=== PATIENT | female | born 1995 | race Caucasian/White ===

== ENCOUNTER 2018-03-24 00:52 | Emergency (ER) | payer OTHER ==
[~2018-03-24] VITALS: Ht 160 cm; Wt 79.4 kg
[~2018-03-24 00:52] MED LIST: MOTRIN800 MG PO
[2018-03-24] MEDS ORDERED: KETO10TA2 PO (09:57)
== END 2018-03-24 10:13 | disposition home or self-care (01) ==
LOC: ER 00:52
DX: R10.2 Pelvic and perineal pain (principal); R10.31 Right lower quadrant pain

== ENCOUNTER 2023-02-08 09:11 | Emergency (ER) | payer OTHER ==
[~2023-02-08] VITALS: Ht 160 cm; Wt 79.4 kg
[~2023-02-08 09:11] MED LIST changes: +KETO10TA2 PO
[2023-02-08] MEDS ORDERED: FOLIC ACID20 MG (09:25)
[2023-02-08] MEDS ORDERED: PRENATAL CAPLE1 EAC1 (09:25)
== END 2023-02-08 13:59 | disposition home or self-care (01) ==
LOC: ER 09:11
DX: O99.611 Diseases of the digestive system complicating pregnancy, first trimester (principal); Z3A.01 Less than 8 weeks gestation of pregnancy; K62.5 Hemorrhage of anus and rectum

== ENCOUNTER 2023-03-15 12:32 | Outpatient (CLI) | payer OTHER ==
[~2023-03-15 12:32] MED LIST changes: +FOLIC ACID20 MG; +PRENATAL CAPLE1 EAC1
== END 2023-03-15 17:15 | disposition home or self-care (01) ==
LOC: PRENATAL 12:32
PROVIDERS: ATTEND Obstetrics & Gynecology Maternal & Fetal Medicine
DX: O36.80X0 Pregnancy with inconclusive fetal viability, not applicable or unspecified (principal); O34.10 Maternal care for benign tumor of corpus uteri, unspecified trimester; Z36 Encounter for antenatal screening of mother; Z3A.12 12 weeks gestation of pregnancy

== ENCOUNTER 2023-05-07 13:42 | Outpatient (CLI) | payer OTHER | END 2023-05-07 13:44 | disposition home or self-care (01) | LOC: PRENATAL 13:42 | PROVIDERS: ATTEND Obstetrics & Gynecology Maternal & Fetal Medicine | DX: O35.3XX0 Maternal care for (suspected) damage to fetus from viral disease in mother, not applicable or unspecified (principal); O34.10 Maternal care for benign tumor of corpus uteri, unspecified trimester; Z3A.20 20 weeks gestation of pregnancy ==

== ENCOUNTER 2023-06-06 09:36 | Outpatient (CLI) | payer OTHER | END 2023-06-06 09:40 | disposition home or self-care (01) | LOC: PRENATAL 09:36 | PROVIDERS: ATTEND Obstetrics & Gynecology Maternal & Fetal Medicine | DX: O26.849 Uterine size-date discrepancy, unspecified trimester (principal); O34.10 Maternal care for benign tumor of corpus uteri, unspecified trimester; O26.879 Cervical shortening, unspecified trimester; Z3A.24 24 weeks gestation of pregnancy ==

== ENCOUNTER 2023-07-29 09:45 | Outpatient (CLI) | payer OTHER | END 2023-07-29 09:46 | disposition home or self-care (01) | LOC: PRENATAL 09:45 | PROVIDERS: ATTEND Obstetrics & Gynecology Maternal & Fetal Medicine | DX: O26.849 Uterine size-date discrepancy, unspecified trimester (principal); O36.8199 Decreased fetal movements, unspecified trimester, other fetus; O34.10 Maternal care for benign tumor of corpus uteri, unspecified trimester; O26.879 Cervical shortening, unspecified trimester; Z3A.32 32 weeks gestation of pregnancy ==

== ENCOUNTER 2023-09-10 12:15 | Inpatient (IN) | payer OTHER ==
[~2023-09-10] VITALS: Ht 160 cm; Wt 3.6 kg
[2023-09-24 09:25] LABS: URINE APPEARANCE Cloudy; URINE BILIRRUBIN Negative (NEGATIVE); URINE BLOOD Negative; URINE COLOR Yellow; URINE EPITHELIAL CELLS 30.2 uL (0.0-38.8); URINE GLUCOSE Negative (NEGATIVE); URINE LEUKOCYTE Trace; URINE NITRATE Negative; URINE PROTEIN Trace (NEGATIVE); URINE RBC 5.1 uL (0.0-20.8); URINE UROBILINOGEN 0.2 E.U./dl; URINE WBC 25.3 uL (0.0-23.2)
[2023-09-24 09:26] LABS: HEMATOCRIT 35.6 % (36.0-45.00); HEMOGLOBIN 12.3 g/dL (12.0-15.00); MEAN CELL VOLUME 90.8 fL (80.00-100.00); MEAN CORPUSCULAR HEMOGLOBIN 31.4 pg (27.00-32.0); MEAN CORPUSCULAR HGB CONC 34.6 g/dl (32.0-36.0); PLATELET COUNT 209 K/uL (150-450); RED BLOOD COUNT 3.92 M/uL (4.00-6.00); RED CELL DISTRIBUTION WIDTH 13.4 % (11.5-14.5)
[2023-09-24] MEDS ORDERED: MISOPROSTOL 25 MCG/4 ML GEL.W.APPL VAG ONE ×2 (09:30→13:45)
[2023-09-24 10:35] LABS: INR 0.94; PARTIAL THROMBOPLASTIN TIME 26.9 SECONDS (22.0-34.0); PROTHROMBIN TIME 9.9 SECONDS (9.0-11.5)
[2023-09-24] MEDS ORDERED: OXYTOCIN 10 UNITS/ML VIAL IV ONE (20:15)
[2023-09-24] MEDS ORDERED: ERYTHROMYCIN BASE 1 GM TUBE OP ONE (20:15)
[2023-09-24] MEDS ORDERED: MEPERIDINE HCL/PF 50 MG/ML VIAL IM PRN (21:45)
[2023-09-24] MEDS ORDERED: PROMETHAZINE HCL 50 MG/ML AMPUL IM PRN (21:45)
[2023-09-24 22:45] LABS: ABG PH 7.259 (7.35-7.45); ABG pCO2 55.9 mmHg (35-45)
[2023-09-24 22:46] LABS: ABG PO2 23.1 mmHg (80-100); BASE EXCESS -3.5 mmol/l; BICARBONATE 24.5 mmol/l (23-25); Tco2 26.2 mmol/l; o2 21 %
[2023-09-25 06:55] LABS: HEMATOCRIT 35.1 % (36.0-45.00); HEMOGLOBIN 12.4 g/dL (12.0-15.00); MEAN CELL VOLUME 91.2 fL (80.00-100.00); MEAN CORPUSCULAR HEMOGLOBIN 32.3 pg (27.00-32.0); MEAN CORPUSCULAR HGB CONC 35.4 g/dl (32.0-36.0); PLATELET COUNT 195 K/uL (150-450); RED BLOOD COUNT 3.85 M/uL (4.00-6.00); RED CELL DISTRIBUTION WIDTH 13.1 % (11.5-14.5)
[2023-09-25] MEDS ORDERED: OxyCODONE HCL/APAP UD (PERCOCET) PO PRN (08:00)
[2023-09-25] MEDS ORDERED: DOCUSATE SODIUM 100MG CAP PO SCH ×2 (08:00→09:00)
[2023-09-25] MEDS ORDERED: SIMETHICONE 125 MG CAPSULE PO SCH (09:00)
[2023-09-25] MEDS ORDERED: PNV,CALCIUM 72/IRON/FOLIC ACID 1 TAB TABLET PO SCH (09:00)
== END 2023-09-26 14:43 | disposition home or self-care (01) | DRG 788 ==
LOC: OB/GYN 09-23 12:15 → LDR 09-24 08:13 → OB/GYN 09-24 08:13 → LDR 09-24 09:15 → OB/GYN 09-24 22:06
PROVIDERS: ADMIT Obstetrics & Gynecology; ATTEND Obstetrics & Gynecology
PROC: 4A1HXCZ Monitoring of Products of Conception, Cardiac Rate, External Approach (ICD-10-PCS; 2023-09-24)
PROC: 3E033VJ Introduction of Other Hormone into Peripheral Vein, Percutaneous Approach (ICD-10-PCS; 2023-09-24)
PROC: 3E0P7VZ Introduction of Hormone into Female Reproductive, Via Natural or Artificial Opening (ICD-10-PCS; 2023-09-24)
PROC: 10D00Z1 Extraction of Products of Conception, Low, Open Approach (ICD-10-PCS; principal; 2023-09-24 20:00)
DX: O33.8 Maternal care for disproportion of other origin (principal); O62.0 Primary inadequate contractions; Z3A.40 40 weeks gestation of pregnancy; Z37.0 Single live birth; Z20.822 Contact with and (suspected) exposure to COVID-19